=== PATIENT | female | born 1940 | race Caucasian/White ===

== ENCOUNTER → 2020-01-08 09:26 | Outpatient (BNVA) | payer MEDICARE, SELFPAY | PROVIDERS: Visit Provider Nurse Practitioner Family | DX: R09.89 Other specified symptoms and signs involving the circulatory and respiratory systems (principal); L92.8 Other granulomatous disorders of the skin and subcutaneous tissue; I70.0 Atherosclerosis of aorta | CPT/HCPCS: 71046 ==

== ENCOUNTER 2022-08-03 09:46 | Inpatient (IN) | payer MEDICARE, SELFPAY ==
[2022-08-03] VITALS (68 sets, daily range): BP systolic 99–152; BP diastolic 65–113; PULSE 63–152; RESP 12–28; TEMP 36.2–37; O2SAT 88–100; BMI 28.3
--- NOTE | 2022-08-03 10:00 | ECG_ITS ---
[facility] Test Date: 2022-08-03 Pat Name: Abigail Nick Department: Room: Gender: Female Claims Adjustor: : 1940 Requested By: Maico Marion Order Number: [id number] Nurys MD: Hermila Dudley M.D. Measurements Intervals [place] Rate: 106 P: NC: QRS: -17 QRSD: 84 T: 31 QT: 315 QTc: 419 Interpretive Statements ATRIAL FIBRILLATION WITH RAPID VENTRICULAR RESPONSE VOLTAGE CRITERIA FOR LVH Compared to ECG 08/03/2022 09:57:07 ST (T wave) deviation no longer present Electronically Signed On 08-03-2022 18:03:28 CDT by Hermila Dudley M.D. [id number]
--- NOTE | 2022-08-03 10:01 | XRR_ITS ---
PROCEDURE INFORMATION: Exam: XR Chest Exam date and time: 08/03/2022 10:38 AM Age: 82 years old Clinical indication: Dyspnea TECHNIQUE: Imaging protocol: Radiologic exam of the chest. Views: 1 view. COMPARISON: CR XR chest 2V* [id number] 01/08/2020 9:34 AM FINDINGS: Lungs: The lung parenchyma is clear. Pleural spaces: No pneumothorax. No pleural effusion. Heart/Mediastinum: The cardiomediastinal silhouette is within normal limits. Bones/joints: Unremarkable. XR/XR chest 1V portable [id number] IMPRESSION: No acute cardiopulmonary abnormality.
[2022-08-03 10:10] LABS: Basophils % 0.2 %; Eosinophils # 0.1 10^3/uL (0.0-0.8); Eosinophils % 1.3 %; Lymphocytes # 1.7 10^3/uL (0.8-4.8); Mean Corpuscular HGB Conc 33.3 g/dL (30.0-36.0); Mean Corpuscular Hemoglobin 32.6 pg (28.0-34.0); Mean Corpuscular Volume 97.8 fl (81-99); Mean Platelet Volume 10.7 fL (7.4-10.4); Monocytes % 9.6 %; Neutrophils % 71.3 %; Nucleated Red Blood Cells % 0 %; Platelet Count 292 10^3/cmm (130-400); Red Cell Distribution Width 12.7 % (12.1-15.1); White Blood Count 10.1 10^3/uL (4.0-10.0)
[2022-08-03] MEDS: esmolol drip 2,500 MG/250 ML PREMIX 9.53 MG IV (10:13)
[2022-08-03 10:47] LABS: Troponin(5th) Baseline 21 ng/L (0-10)
[2022-08-03 10:50] LABS: Alanine Aminotransferase 30 U/L (0-33); Albumin Level 3.8 g/dL (3.5-5.2); Alkaline Phosphatase 104 U/L (35-105); Blood Urea Nitrogen 19 mg/dL (8-23); Calcium 9.3 mg/dL (8.5-10.5); Carbon Dioxide 27 mmol/L (22-29); Chloride 101 mmol/L (98-107); Glucose 108 mg/dL (65-115); NT Pro B Type Natriuretic Pept 704 pg/mL (0-450); Osmolality Calculated 293 mOsm/kg (285-295); Sodium 140 mmol/L (136-145); Thyroid Stimulating Hormone 1.64 uIU/mL (0.27-4.20); Total Bilirubin 0.6 mg/dL (0.15-1.2); Total Protein 6.8 g/dL (6.6-8.7)
[2022-08-03 10:52] LABS: Anion Gap 16.2 (5-19); Aspartate Amino Transferase 27 U/L (0-32); Potassium 4.2 mmol/L (3.5-5.1)
--- NOTE | 2022-08-03 10:52 | W.ED.ARRPALP ---
HPI - Arrhythmia/Palpitations General: Chief Complaint: ER Hold Stated Complaint: new onset afib Source: patient Mode of arrival: ambulatory Limitations: no limitations History of Present Illness: 82-year-old female presents the emergency room with irregular rapid heart rate. She not had any chest pain it has caused her to be extremely weak and short of breath generally not feeling well has been going on intermittently for the last 3 weeks. She has not had any orthopnea no swelling in her legs no known history of atrial fibrillation coronary disease in the past MD complaint: rapid heart beat, heart racing and skipped beats Onset (ago): week(s) (2) Duration: intermittent Severity: moderate Context: occurred during rest Arrhythmia history: atrial fibrillation Associated symptoms: Deny anxiety, cough, diaphoresis, muscle cramps, nausea, paresthesias, pre-syncope, sense of impending doom, short of breath, syncope or vomiting Review of Systems Const: Denies: diaphoresis Card: Denies: syncope or pre-syncope GI: Denies: nausea or vomiting : Denies: flank pain, difficulty voiding, dysuria, urinary frequency or urinary urgency Musc: Denies: muscle cramps Psych: Denies: anxiety PFSH ED PFSH: Medical History CVA (cerebral vascular accident) GERD (gastroesophageal reflux disease) Hyperlipidemia Hypertension Surgical History Hx of hysterectomy Family History Other Psychiatric illness Social History Smoking and tobacco status: never smoked Second hand smoke exposure: No Alcohol intake: never Lives independently: Yes Household members: none Housing: House Marital status: / Current occupational status: retired History of recent travel: No Current gender identity: Female Physical Exam Const: COMMON NORMALS: no acute distress GENERAL APPEARANCE: cooperative and comfortable ORIENTATION/CONSCIOUSNESS: Yes awake, Yes oriented to person, Yes oriented to place and Yes oriented to time HENMT: COMMON NORMALS: normocephalic, atraumatic and hearing grossly normal bilaterally HEAD & SCALP: normocephalic and atraumatic Resp: COMMON NORMALS: normal respiratory effort, No retractions, No use of accessory muscles and clear to auscultation bilaterally AUSCULTATION: clear to auscultation bilaterally Cardio: RATE: tachycardic RHYTHM: abnormal rhythm irregularly irregular GI: COMMON NORMALS: Soft to palpation and No hepatosplenomegaly present AUSCULTATION: Yes normoactive bowel sounds PALPATION: Yes Soft to palpation, No Tenderness to palpation present (GI), No Guarding due to palpation present (GI) and Yes No hepatosplenomegaly present Extremity: COMMON NORMALS: normal to inspection, capillary refill normal, no clubbing, cyanosis or edema, no calf tenderness and no pedal edema Neuro: SENSORIUM/ORIENTATION: Yes oriented to person, Yes oriented to place and Yes oriented to time Skin: COMMON NORMALS: no rashes or lesions noted GENERAL SKIN EXAM: no rashes or lesions noted Course Vital Signs: Vital signs: Vital Signs Temperature 98.2 F 08/03/22 09:55 Pulse Rate 122 H 08/03/22 13:15 Respiratory Rate 15 08/03/22 15:22 Blood Pressure 139/103 08/03/22 13:15 Pulse Oximetry 99 08/03/22 15:22 Oxygen Delivery Me thod 08/03/22 10:42 MDM - Arrhythmia/Palpitations Medical Decision Making new onset afib. Admit for rate control and further evaluation. Medical Records I reviewed the patient's medical records. Lab Data I reviewed the patient's lab results. : 08/03/22 10:00 08/03/22 10:00 Radiology Impressions Chest X-Ray 08/03/22 10:01 IMPRESSION: No acute cardiopulmonary abnormality. Abdomen X-Ray 08/03/22 12:11 IMPRESSION: Unremarkable bowel gas pattern. Laboratory Results WBC 10.1 10^3/uL (4.0-10.0) H 08/03/22 10:00 RBC 4.60 10^6/uL (4.1-5.3) 08/03/22 10:00 Hgb 15.0 g/dL (11.5-15.3) 08/03/22 10:00 Hct 45.0 % (37.0-47.0) 08/03/22 10:00 MCV 97.8 fl (81-99) 08/03/22 10:00 MCH 32.6 pg (28.0-34.0) 08/03/22 10:00 MCHC 33.3 g/dL (30.0-36.0) 08/03/22 10:00 RDW 12.7 % (12.1-15.1) 08/03/22 10:00 Plt Count 292 10^3/cmm (130-400) 08/03/22 10:00 MPV 10.7 fL (7.4-10.4) H 08/03/22 10:00 Neut % (Auto) 71.3 % 08/03/22 10:00 Lymph % (Auto) 17.0 % 08/03/22 10:00 [place] % (Auto) 9.6 % 08/03/22 10:00 Eos % (Auto) 1.3 % 08/03/22 10:00 Baso % (Auto) 0.2 % 08/03/22 10:00 Neut # (Auto) 7.20 10^3/uL (1.8-7.7) 08/03/22 10:00 Lymph # (Auto) 1.7 10^3/uL (0.8-4.8) 08/03/22 10:00 [place] # (Auto) 1.0 10^3/uL (0.2-0.9) H 08/03/22 10:00 Eos # (Auto) 0.1 10^3/uL (0.0-0.8) 08/03/22 10:00 Baso # (Auto) 0.0 10^3/uL (0.0-0.1) 08/03/22 10:00 Nucleated RBC % (auto) 0 % 08/03/22 10:00 Nucleated RBCs # 0.0 /100WBC 08/03/22 10:00 Sodium 140 mmol/L (136-145) 08/03/22 10:00 Potassium 4.2 mmol/L (3.5-5.1) 08/03/22 10:00 Chloride 101 mmol/L (98-107) 08/03/22 10:00 Carbon Dioxide 27 mmol/L (22-29) 08/03/22 10:00 Anion Gap 16.2 (5-19) 08/03/22 10:00 BUN 19 mg/dL (8-23) 08/03/22 10:00 Creatinine 0.8 mg/dL (0.5-0.9) 08/03/22 10:00 GFR Calculation Not Reportable 08/03/22 10:00 Glucose 108 mg/dL (65-115) 08/03/22 10:00 Calculated Osmolality 293 mOsm/kg (285-295) 08/03/22 10:00 Lactate 1.4 mmol/L (0.5-2.2) 08/03/22 10:00 Calcium 9.3 mg/dL (8.5-10.5) 08/03/22 10:00 Magnesium 2.0 mg/dL (1.7-2.3) 08/03/22 10:00 Total Bilirubin 0.6 mg/dL (0.15-1.2) 08/03/22 10:00 AST 27 U/L (0-32) 08/03/22 10:00 ALT 30 U/L (0-33) 08/03/22 10:00 Alkaline Phosphatase 104 U/L (35-105) 08/03/22 10:00 Troponin T Baseline 21 ng/L (0-10) H 08/03/22 10:00 Troponin T 120 Minute 28.04 ng/L (0-10) H 08/03/22 11:56 Delta Troponin T 7.04 ABS# (0-10) 08/03/22 11:56 NT-Pro-B Natriuret Pep 704 pg/mL (0-450) H 08/03/22 10:00 Total Protein 6.8 g/dL (6.6-8.7) 08/03/22 10:00 Albumin 3.8 g/dL (3.5-5.2) 08/03/22 10:00 Globulin 3.0 g/dL (1.3-4.6) 08/03/22 10:00 Lipase 72 U/L (13-60) H 08/03/22 10:00 TSH 1.64 uIU/mL (0.27-4.20) 08/03/22 10:00 Discharge Plan Discharge Patient Disposition: Admitted As Inpatient Admit Provider: Andrea Campbell Clinical Impression: Atrial fibrillation, Hypertension Condition: Stable Coding Level of Care Code ED Personal Injury Paralegal for Chg Fwd Exam Detailed
--- NOTE | 2022-08-03 11:22 | PC.PHAR ---
pts family verified pts medications-states the pts amlodipine 2.5mg daily and losartan 50mg bid was put on hold states the pt did take one tab of the losartan on tuesday and one tab of the amlodipine 2.5mg tab on tue-states the pt should be on the last role of the medrol dose pack today rx filled 07/28/22 6d/s-kcl 20meq daily was filled 07/03/22 30d/s pts family states the pt is not taking kcl -notes are made in the pharmacy comments
--- NOTE | 2022-08-03 11:48 | USCV_ITS ---
Abigail Nick Age: 82 Gender: F : 1940 Exam Date: 08/03/2022 16:17 Ordering Phys: Andrea Campbell MD Technologist: KATELYN Exam Location: [facility] [place] Indication: AFIB WITH RVR BP: 141 / 80 HR: 75 Rhythm: Sinus Technical Quality: Adequate MEASUREMENTS (Male / Female) Normal Values 2D ECHO LVOT Diameter 2.0 cm LV Ejection Fraction MOD 2C 69.6 % LV Ejection Fraction 2C AL 72.2 % LA Diameter 3.3 cm LA Width 2.8 cm LA Height 4.6 cm RA Width 2.4 cm RA Height 4.7 cm Aorta at Sinotubular Diameter 2.5 cm M-MODE Aortic Annulus Diameter 2.6 cm LA Ao Ratio MM 1.2 MV E Point Septal Separation 0.2 cm DOPPLER AV Peak Velocity 121.0 cm/s LVOT Peak Velocity 110.0 cm/s AV Area Cont Eq vti 3.6 cm squared AV Area Cont Eq pk 2.8 cm squared MV Peak Velocity 79.0 cm/s MV Area PHT 3.1 cm squared Mitral E to A Ratio 0.9 MV E' Velocity 39.0 cm/s Mitral E to MV E' Ratio 8.1 Mitral E to LV E' Lateral Ratio 7.5 Mitral E to LV E' Septal Ratio 8.8 TR Peak Velocity 197.1 cm/s TR Peak Gradient 15.5 mmHg TR Mean Velocity 144.3 cm/s TR Mean Gradient 9.6 mmHg TR Velocity Time Integral 49.9 cm TV Peak E Velocity 34.0 cm/s Right Atrial Pressure 8.0 mmHg Pulmonary Artery Systolic Pressu 23.5 mmHg PV Peak Velocity 87.0 cm/s RV Acceleration Time 0.1 s RV Ejection Time 0.3 s RV AcT/ET 0.3 FINDINGS Left Ventricle Left ventricle is normal in size. LV systolic function is normal with EF 55 to 60%. No regional wall motion abnormalities are seen. Grade 1 diastolic dysfunction Right Ventricle RV is normal in size and function Right Atrium Normal in size Left Atrium Normal in size Mitral Valve Moderate mitral annular calcification is seen. Mild mitral regurgitation seen. Aortic Valve Aortic valve is thickened. No significant stenosis or regurgitation is seen. Tricuspid Valve Mild tricuspid regurgitation. Insufficient TR jet to elevated RVSP. Pulmonic Valve Not well-visualized. Mild pulmonic regurgitation. Pericardium Normal Aorta Normal in size IVC Not well-visualized CONCLUSIONS LV systolic function is normal with EF 55 to 60%. Grade 1 diastolic dysfunction Mild mitral regurgitation Moderate mitral annular calcification Mild tricuspid regurgitation Mild pulmonic regurgitation. No comparison studies are available Margarito Dsouza MD (Electronically Signed) Final Date: 03 August 2022 18:15 S
--- NOTE | 2022-08-03 12:11 | XRR_ITS ---
PROCEDURE INFORMATION: Exam: XR Abdomen Exam date and time: 08/03/2022 12:40 PM Age: 82 years old Clinical indication: Abdominal pain; Generalized TECHNIQUE: Imaging protocol: Radiologic exam of the abdomen. Views: Frontal supine view of the abdomen. 1 View. COMPARISON: CR XR chest 1V portable [id number] 08/03/2022 10:38 AM FINDINGS: Gastrointestinal tract: Normal. No bowel dilation. Vasculature: Vascular calcifications. Bones/joints: Arthritic changes in the spine with questionable compression fractures of T12 and L2. XR/XR abdomen 1V* [id number] IMPRESSION: Unremarkable bowel gas pattern.
--- NOTE | 2022-08-03 12:15 | PM.HP ---
Providers/Chief Complaint Admitting Physician: Andrea Campbell MD Chief Complaint: new onset afib History of Present Illness Abigail Nick is a 82 year old female with past history of CVA affecting her right side, hypertension, hyperlipidemia who presents to the hospital with complaints of nausea vomiting and loose stool. Nausea has been going on for several days. Occasional loose stool. Was hospitalized with similar symptoms 1 month ago in [facility]. Treated with Zofran, IV fluids and eventually released. Was told she was constipated at one point. Also she had palpitations at that time which she reports she has intermittently. They reported she had intermittent atrial fibrillation diagnosed by telemetry at her previous hospital stay. She denies any chest discomfort or shortness of breath. No fever or chills. States her abdomen hurts all over, but does not hurt with any palpation. Stool, black or tarry stool, hematemesis. Her last hospital stay she has been very weak, and physical therapy had been ordered at home. She has been making some small gains. Review of Systems General: Reports: 10 or more systems reviewed and unremarkable except in HPI and below Const: Reports: fatigue; Denies: fever(s) or chills Eyes: Denies: change in vision ENMT: Denies: throat pain Card: Reports: palpitations; Denies: chest pain Resp: Denies: dyspnea GI: Reports: abdominal pain and nausea; Denies: hematemesis, hematochezia or melena : Denies: flank pain Musc: Denies: neck pain Skin/Breast: Denies: rash Neuro: Denies: headache(s) Psych: Denies: anxiety Endo: Denies: polyuria Ameya/Lymph: Denies: easy bruising All/Imm: Denies: urticaria Medications/Allergies Home Medications Medication Instructions Recorded Confirmed Last Taken Type omeprazole 20 mg tablet,delayed 20 mg PO QAM 01/08/20 08/03/22 08/02/22 History release vitamin E (dl, acetate) 90 mg (200 200 unit PO DAILY@12 01/08/20 08/03/22 08/02/22 History unit) capsule amlodipine 2.5 mg tablet 2.5 mg PO DAILY 08/03/22 08/03/22 07/31/22 History atorvastatin 20 mg tablet 20 mg PO BEDTIME 08/03/22 08/03/22 08/02/22 History clopidogrel 75 mg tablet 75 mg PO QAM 08/03/22 08/03/22 08/02/22 History coenzyme Q10 100 mg capsule 100 mg PO BEDTIME 08/03/22 08/03/22 08/02/22 History (CoQ-10) losartan 50 mg tablet 50 mg PO BID 08/03/22 08/03/22 08/01/22 History methylprednisolone 4 mg tablets in See Rx Instructions .Route .COMPLEX 08/03/22 08/03/22 08/02/22 History a dose pack metoprolol succinate 25 mg 25 mg PO BID 08/03/22 08/03/22 08/02/22 History tablet,extended release 24 hr tizanidine 4 mg tablet 2 mg PO QID PRN Muscle Spasm 08/03/22 08/03/22 Unknown History tramadol 50 mg tablet 50 mg PO QID PRN Pain 08/03/22 08/03/22 Unknown History Allergies Allergy/AdvReac Type Severity Reaction Status Date / Time Sulfa (Sulfonamide Allergy ALGY-Rash Verified 08/03/22 10:57 Antibiotics) PFSH Acute PFSH: Medical History CVA (cerebral vascular accident) GERD (gastroesophageal reflux disease) Hyperlipidemia Hypertension Surgical History (Updated 08/03/22 @ 12:19 by Andrea Campbell MD) Hx of hysterectomy Family History Other Psychiatric illness Social History Smoking and tobacco status: never smoked Second hand smoke exposure: No Alcohol intake: never Lives independently: Yes Household members: none Housing: House Marital status: / Current occupational status: retired History of recent travel: No Current gender identity: Female Vitals/I&O/Wt Last Vital Signs Temp 98.2 F 08/03/22 09:55 Pulse 113 H 08/03/22 11:15 Resp 15 08/03/22 11:15 BP 140/105 08/03/22 11:15 Pulse Ox 97 08/03/22 11:15 O2 Del Method 08/03/22 10:42 08/02/22 08/03/22 08/03/22 22:59 06:59 14:59 Intake Total 38.259 / 38.259 Balance 38.259 / 38.259 Weight last 48 hrs Weight 63.503 kg Physical Exam Narrative: Is a white female, no distress, with family at bedside. She is alert, and oriented but somewhat hard of hearing. HEENT: Atraumatic and normocephalic. Pupils equally round. Oropharynx clear. Neck is supple no lymphadenopathy thyromegaly Cardiovascular irregular, irregular with tachycardic rate. No murmur auscultated. Lungs clear no wheezing or crackles Abdomen is soft. No tenderness to palpation. Bowel sounds are noted. No obvious organomegaly exam was deferred Extremities no cyanosis clubbing or edema, cap refill brisk Skin no rash Neuro no obvious focal deficits although family reports occasionally right side is weaker when she is fatigued secondary to past history of TIA/CVA Data : 08/03/22 10:00 08/03/22 10:00 Other Labs: EKG demonstrates atrial fibrillation with rapid ventricular rate, border left axis deviation, nonspecific ST-T wave changes Chest x-ray no infiltrate, atherosclerotic disease noted. TSH was checked and normal Function tests normal Initial troponin 21 BNP 704 Calcium normal Lactate ordered and pending Magnesium normal LFTs normal A&P Assessment and plan (1) Atrial fibrillation: Patient presents with atrial fibrillation with rapid ventricular rate. It sounds as if she may have been diagnosed with paroxysmal atrial fibrillation 1 month ago. Request records from outside hospital TSH was checked and normal Await magnesium level She has been placed on an esmolol drip which is appropriate. We will give her 25 mg of metoprolol now and increase her home dosing to 50 mg twice daily to see if control can be achieved. If so titrate off esmolol drip. Check echocardiogram Status: Acute (2) Abdominal pain: Patient with history of abdominal pain, nausea, and some loose stools. Request records from [place] where she had a CT scan 1 month ago or more recently Initiate Protonix 40 mg twice daily Clear liquids for now Check stool for C. difficile Abdominal film, check lactate, check lipase May need further investigation depending upon the results of the above. Check urinalysis Secondary to nausea, diarrhea we will also check COVID PCR. Status: Acute (3) Weakness: Patient with significant weakness since her last hospital stay in [place]. Continue physical therapy in house Status: Acute (4) Hypertension: Hold patient's Norvasc, losartan currently until we see how she responds to increases in her beta-beth. Certainly will likely need ARB urea added. Status: Acute Plan Medical problems as outlined in past medical history Allow natural Lovenox will suffice for DVT prophylaxis Attestations Medical Necessity Statement*: Will require greater than 2 midnight stay secondary to atrial fibrillation with rapid ventricular rate, significant nausea and vomiting, weakness Coding Level of Care Code Acute Paster Supervisor for [facility] Ovidio Diagnoses Atrial fibrillation I48.91 Abdominal pain R10.9 Weakness R53.1 Hypertension I10
--- NOTE | 2022-08-03 12:17 | ECG_ITS ---
[facility] Test Date: 2022-08-03 Pat Name: Abigail Nick Department: Room: Gender: Female [place] Operator: : 1940 Requested By: Maico Marion Order Number: [id number] Nurys MD: Hermila Dudley M.D. Measurements Intervals [place] Rate: 129 P: TN: QRS: -18 QRSD: 83 T: 27 QT: 293 QTc: 430 Interpretive Statements Atrial fibrillation with rapid ventricular response MODERATE VOLTAGE CRITERIA FOR LVH, CONSIDER NORMAL VARIANT MODERATE ST DEPRESSION [0.05+ mV ST DEPRESSION] Compared to ECG 08/03/2022 09:57:07 ST (T wave) deviation still present Electronically Signed On 08-04-2022 9:56:48 CDT by Hermila Dudley M.D. [email or web address] [email or web address].Flowity/store/[id number]
[2022-08-03 12:29] LABS: Troponin 5 2HR 28.04 ng/L (0-10); Troponin 5 2HR Delta 7.04 ABS# (0-10)
[2022-08-03 12:31] LABS: Lactate (Lactic Acid level) 1.4 mmol/L (0.5-2.2)
[2022-08-03 12:57] LABS: Lipase 72 U/L (13-60)
[2022-08-03] MEDS: metoprolol tartrate 25 mg Tablet PO (13:12)
[2022-08-03] MEDS: enoxaparin 60 mg/0.6 mL Syringe SUBCUT (13:12)
[2022-08-03] MEDS: pantoprazole 40 mg SDV IVP (13:13)
[2022-08-03] MEDS: sodium chloride 0.9% 1,000 ML 75 ML IV (13:21)
[2022-08-03] MEDS: morphine 4 mg/mL SDV 1 mL 2 MG IVP (15:22)
[2022-08-03] MEDS: esmolol drip 2,500 MG/250 ML PREMIX 38.1 MG IV (15:34)
--- NOTE | 2022-08-03 16:00 | ECG_ITS ---
[facility] Test Date: 2022-08-03 Pat Name: Abigail Nick Department: Room: Gender: Female Application Counselor: : 1940 Requested By: Maico Marion Order Number: [id number] Nurys MD: Hermila Dudley M.D. Measurements Intervals [place] Rate: 155 P: MD: QRS: -6 QRSD: 90 T: 45 QT: 273 QTc: 438 Interpretive Statements ATRIAL FIBRILLATION WITH RAPID VENTRICULAR RESPONSE MODERATE VOLTAGE CRITERIA FOR LVH, CONSIDER NORMAL VARIANT MODERATE ST DEPRESSION No previous ECG available for comparison Electronically Signed On 08-04-2022 9:57:17 CDT by Hermila Dudley M.D. [email or web address] memorial [email or web address] regional medical centerCibiem/store/OM/[id number]
[2022-08-03 17:24] LABS: Troponin 5 6HR 27.81 ng/L (0-10); Troponin 5 6HR Delta 6.81 ng/L (0-12)
--- NOTE | 2022-08-03 17:57 | PC.NURSE ---
Report to [facility], ICU, patient moving out to ICU 6. Call placed to Dr. Campbell re: esmolol, patient's heart rate sustaining in the 70's, has started po meds, yes okay to titrate off, esmolol turned off at this time.
[2022-08-03] MEDS: metoprolol tartrate 50 mg Tablet PO (18:01)
--- NOTE | 2022-08-03 18:28 | PC.NURSE ---
Arrived from ED, AO x4, no c/o
[2022-08-03] MEDS: atorvastatin 40 mg Tablet 20 MG PO (20:24)
[2022-08-04] VITALS (55 sets, daily range): BP systolic 147–200; BP diastolic 60–107; PULSE 64–112; RESP 12–33; TEMP 36.6–36.8; O2SAT 81–100
[2022-08-04] MEDS: enoxaparin 60 mg/0.6 mL Syringe SUBCUT ×3 (00:05→23:45)
[2022-08-04] MEDS: pantoprazole 40 mg SDV IVP ×3 (00:06→23:45)
[2022-08-04 00:37] LABS: Adenovirus Not Detected (NOT DETECT); Chlamydia Pneumoniae Not Detected (NOT DETECT); Coronavirus 229E,HKU1,NL63,OC4 Not Detected (NOT DETECT); Human Metapneumovirus Not Detected (NOT DETECT); Human Rhinovirus/Enterovirus Not Detected (NOT DETECT); Influenza A Not Detected (NOT DETECT); Influenza A H1 Not Detected (NOT DETECT); Influenza A H1-2009 Not Detected (NOT DETECT); Influenza A H3 Not Detected (NOT DETECT); Influenza B Not Detected (NOT DETECT); Mycoplasma Pneumoniae Not Detected (NOT DETECT); Parainfluenza Virus Type 1 Not Detected (NOT DETECT); Parainfluenza Virus Type 2 Not Detected (NOT DETECT); Parainfluenza Virus Type 3 Not Detected (NOT DETECT); Parainfluenza Virus Type 4 Not Detected (NOT DETECT); Respiratory Syncytial Virus A Not Detected (NOT DETECT); Respiratory Syncytial Virus B Not Detected (NOT DETECT); SARS-COV-2 Not Detected (NOT DETECT)
[2022-08-04 04:33] LABS: Add Urine Culture? No; Amorphous Sediment Urine 1+ /hpf; Bilirubin Urine Neg (Negative); Blood Urine Trace (Negative); Glucose Urine UA Norm (Normal); Ketones Urine Negative (Negative); Leukocyte Esterase Urine Negative (Negative); Nitrate Urine Negative (Negative); Protein Urine Neg (Negative); RBC Urine 0-4 /hpf (0-2); Squamous Epithelial Cell Urine 0-4 /hpf (0-5); Urine Appearance Clear (CLEAR); Urine Color Yellow (Yellow); Urobilinogen Urine Norm (Negative); WBC Urine 0-4 /hpf (0-5); pH Urine 6.5 (5-7)
[2022-08-04 04:53] LABS: Basophils % 0.2 %; Eosinophils # 0.1 10^3/uL (0.0-0.8); Eosinophils % 2.1 %; Hematocrit 35.1 % (37.0-47.0); Hemoglobin 11.5 g/dL (11.5-15.3); Lymphocytes # 1.3 10^3/uL (0.8-4.8); Lymphocytes % 20.6 %; Mean Corpuscular HGB Conc 32.8 g/dL (30.0-36.0); Mean Corpuscular Hemoglobin 32.6 pg (28.0-34.0); Mean Corpuscular Volume 99.4 fl (81-99); Mean Platelet Volume 10.8 fL (7.4-10.4); Monocytes # 0.5 10^3/uL (0.2-0.9); Monocytes % 7.9 %; Neutrophils # 4.27 10^3/uL (1.8-7.7); Neutrophils % 68.7 %; Nucleated Red Blood Cells % 0 %; Platelet Count 222 10^3/cmm (130-400); Red Blood Count 3.53 10^6/uL (4.1-5.3); Red Cell Distribution Width 12.8 % (12.1-15.1); White Blood Count 6.2 10^3/uL (4.0-10.0)
[2022-08-04] MEDS: clopidogrel 75 mg Tablet PO (05:02)
[2022-08-04] MEDS: sodium chloride 0.9% 1,000 ML 75 ML IV ×2 (05:03→14:28)
[2022-08-04 05:18] LABS: Alanine Aminotransferase 19 U/L (0-33); Albumin Level 2.9 g/dL (3.5-5.2); Alkaline Phosphatase 77 U/L (35-105); Anion Gap 13.3 (5-19); Aspartate Amino Transferase 16 U/L (0-32); Blood Urea Nitrogen 14 mg/dL (8-23); Calcium 8.2 mg/dL (8.5-10.5); Carbon Dioxide 24 mmol/L (22-29); Chloride 105 mmol/L (98-107); Globulin 2.1 g/dL (1.3-4.6); Glucose 95 mg/dL (65-115); Osmolality Calculated 288 mOsm/kg (285-295); Potassium 3.3 mmol/L (3.5-5.1); Sodium 139 mmol/L (136-145); Total Bilirubin 0.6 mg/dL (0.15-1.2)
[2022-08-04] MEDS: ondansetron 2 mg/ML SDV 2 mL 4 MG IVP (05:29)
[2022-08-04] MEDS: metoprolol tartrate 50 mg Tablet PO ×2 (08:19→17:06)
[2022-08-04 09:36] LABS: Lipase 41 U/L (13-60)
--- NOTE | 2022-08-04 09:40 | P.PN_ITS ---
Subjective Subjective: Abigail reports she is nauseated, needs to have a bowel movement. Nursing reports that she converted to sinus rhythm at last night. Patient denies any chest discomfort. She reports her abdominal pain is all over, not [address] She believes it might be alleviated after a bowel movement. Medications: Reviewed: Yes Vitals/I&O/Wt Last Vital Signs Temp 98.6 F 08/03/22 23:44 Pulse 112 H 08/04/22 09:15 Resp 14 08/04/22 04:00 BP 154/60 08/04/22 04:00 Pulse Ox 96 08/04/22 09:15 O2 Del Method 08/04/22 09:15 08/03/22 08/04/22 08/04/22 22:59 06:59 14:59 Intake Total 452.593 / 371.514 3978 / 1690.852 Output Total 810 / 810 Balance 452.593 / 490.852 390 / 880.852 Weight last 48 hrs Weight 63.503 kg Physical Exam Narrative: General exam is white female complaining of abdominal pain and needing to have a bowel movement Neck is supple no lymphadenopathy thyromegaly Cardiovascular irregular, irregular with tachycardic rate. No murmur auscultated. Lungs clear no wheezing or crackles Abdomen is soft. Bowel sounds are noted. No obvious organomegaly exam was deferred Extremities no cyanosis clubbing or edema, cap refill brisk Skin no rash Data : 08/04/22 04:13 08/04/22 04:13 A&P Assessment and plan (1) Atrial fibrillation: Patient presents with atrial fibrillation with rapid ventricular rate. She has now converted to sinus rhythm It sounds as if she may have been diagnosed with paroxysmal atrial fibrillation 1 month ago. TSH was checked and normal Magnesium level was normal She has been placed on an esmolol drip which is appropriate. This has since been discontinued and she is cardioverted. Continue increased dose of metoprolol 50 mg twice daily Echocardiogram has been checked. EF preserved at 55 to 60%, grade 1 diastolic dysfunction, mild valvular abnormalities Continue full dose anticoagulation. We will convert to oral anticoagulation when it is apparent no surgical procedures are needed. I have already discussed the risks and benefits of anticoagulation with the patient and family. Status: Acute (2) Abdominal pain: Patient with history of abdominal pain, nausea, and some loose stools. Request records from [place] where she had a CT scan 1 month ago were reviewed. [address] scan not very revealing at that time . Continue Protonix 40 mg twice daily Clear liquids for now Await C. difficile toxin if she in fact has loose stool. Abdominal film and lactate were unrevealing. Lipase slightly high on admission. Repeat is normal. Urinalysis negative COVID PCR negative I revisited the patient shortly after the visit, and she had had a soft bowel movement and resolution of her discomfort and nausea. We will advance diet. If significant recurrent symptoms, consider CT scan. As she is recently had one 1 month ago will try to avoid. Status: Acute (3) Weakness: Patient with significant weakness since her last hospital stay in [place]. Continue physical therapy in hospital Status: Acute (4) Hypertension: Reinitiate losartan Status: Acute Plan Hypokalemia, supplement Medical problems as outlined in past medical history Allow natural Lovenox will suffice for DVT prophylaxis Attestations Medical Necessity Statement*: Needs continued hospitalization secondary to persistent nausea and abdominal pain with concern for recurrent vomiting, dehydration, and rehospitalization Coding Level of Care Code Acute Personal Lines Advisor for Chg Fwd Diagnoses Atrial fibrillation I48.91 Abdominal pain R10.9 Weakness R53.1 Hypertension I10
--- NOTE | 2022-08-04 10:30 | PC.CHAP ---
Pastoral Care Encounter/Spiritual Assessment Type of Contact [] Declined hat band attacher visit [] Patient/Family/Request visit [] Outpatient visit [] Follow-up visit [] Physician referral [] Code/Alert [x] Routine visit [] Staff referral [] Actively dying [] Patient sleeping [x] Family support [] [] Out of room [] Palliative care [] [] Receiving care in room [] Pre-surgical visit [] Trauma [] Long length of stay [x] ICU visit [x] Other: doctor present Relational/Emotional Strength [] Patient feels connected with others/family/visitors/staff [] Distress [] Loneliness/isolation [] Abandonment Spirituality of Patient [] Person of Brianna [] Attends Uatsdin of their Brianna [] Believes in Prayer [] Reads Bible or Hindu materials [] There are Spiritual issues to be addressed Selector Packer Interventions [x] Prayer [] Active listening [] Non-anxious presence [] Spiritual/emotional support [] Crisis/trauma care [] Spiritual counseling [] Bereavement support [] Provided bereavement packet [] Provided Bible/devotional materials [] Provided toy/stuffed animal, coloring book to patient or family member [] Provided Communion [] Anointing/[place] [] Salvation [x] Completed spiritual assessment [] Other: Impact on Illness or Injury [] Angry [] Fearful [] Anxious [] Often cries [] Exhaustion [] Unable to work [] Unable to attend temple [] Unable to walk/stand [] Unable to read [] Unable to drive [] Unable to eat/drink [] Unable to sleep [] Unable to be with family [] Patient intubated [] Other: Summary PT feeling stronger... being served solid food to test ability to digest it... Time spent with patient
[2022-08-04] MEDS: polyethylene glycol 3350 Pkt 17 gm PO (11:00)
[2022-08-04] MEDS: potassium chloride ER 20 mEq Tablet 40 MEQ PO (11:00)
[2022-08-04] MEDS: cyclobenzaprine 10 mg Tablet 5 MG PO (12:42)
[2022-08-04] MEDS: losartan 50 mg Tablet PO (17:04)
[2022-08-04] MEDS: atorvastatin 40 mg Tablet 20 MG PO (20:03)
[2022-08-05] VITALS (10 sets, daily range): BP systolic 120–181; BP diastolic 65–115; PULSE 65–80; RESP 13–29; TEMP 37; O2SAT 94–99
[2022-08-05 03:52] LABS: Basophils % 0.3 %; Eosinophils # 0.2 10^3/uL (0.0-0.8); Eosinophils % 2.5 %; Hemoglobin 10.9 g/dL (11.5-15.3); Lymphocytes # 1.3 10^3/uL (0.8-4.8); Lymphocytes % 20.8 %; Mean Corpuscular HGB Conc 32.1 g/dL (30.0-36.0); Mean Corpuscular Hemoglobin 32.7 pg (28.0-34.0); Mean Corpuscular Volume 102.1 fl (81-99); Mean Platelet Volume 11.2 fL (7.4-10.4); Monocytes # 0.6 10^3/uL (0.2-0.9); Monocytes % 10.4 %; Neutrophils # 3.97 10^3/uL (1.8-7.7); Neutrophils % 65.5 %; Nucleated Red Blood Cells % 0 %; Platelet Count 214 10^3/cmm (130-400); Red Blood Count 3.33 10^6/uL (4.1-5.3); Red Cell Distribution Width 12.8 % (12.1-15.1); White Blood Count 6.1 10^3/uL (4.0-10.0)
[2022-08-05 04:20] LABS: Alanine Aminotransferase 20 U/L (0-33); Alkaline Phosphatase 73 U/L (35-105); Aspartate Amino Transferase 19 U/L (0-32); Blood Urea Nitrogen 10 mg/dL (8-23); Carbon Dioxide 24 mmol/L (22-29); Chloride 107 mmol/L (98-107); Globulin 1.9 g/dL (1.3-4.6); Glucose 105 mg/dL (65-115); Osmolality Calculated 289 mOsm/kg (285-295); Sodium 140 mmol/L (136-145); Total Bilirubin 0.5 mg/dL (0.15-1.2); Total Protein 4.9 g/dL (6.6-8.7)
[2022-08-05 04:24] LABS: Anion Gap 12.7 (5-19); Potassium 3.7 mmol/L (3.5-5.1)
[2022-08-05] MEDS: clopidogrel 75 mg Tablet PO (05:04)
[2022-08-05] MEDS: sodium chloride 0.9% 1,000 ML 75 ML IV (07:29)
[2022-08-05] MEDS: losartan 50 mg Tablet PO (08:49)
[2022-08-05] MEDS: metoprolol tartrate 50 mg Tablet PO (08:49)
[2022-08-05] MEDS: polyethylene glycol 3350 Pkt 17 gm PO (08:49)
--- NOTE | 2022-08-05 11:07 | PM.DCS ---
Discharge Providers Date of Admission: 08/03/22 14:07 Date of Discharge: August 05, 2022 Attending Provider at Admission: Andrea Campbell MD Attending Provider at Discharge: Lazaro Blandon Diagnoses at Discharge Discharge Diagnosis (1) Atrial fibrillation: Status: Acute (2) Abdominal pain: Status: Acute (3) Weakness: Status: Acute (4) Hypertension: Status: Acute Reason for Visit Reason for Visit: new onset afib Hospital Course Hospital Course Very pleasant 82-year-old lady with history of CVA, chronic residual right-sided deficit, HTN, HLD, was admitted for assessment of management presenting with nausea, vomiting, loose stool, several days of symptoms, previously admitted with similar symptoms a month ago in [facility] at which time received IV hydration, was assessed also by CT abdomen pelvis. Recently diagnosed with atrial fibrillation, on presentation with Bj wallace with RVR, metoprolol dose was increased to 50 mg twice daily, she was started on anticoagulation. Was continued on pantoprazole 40 mg daily. Plain abdominal film showed unremarkable bowel gas pattern. She had a bowel movement. Nausea and abdominal discomfort have resolved. Today she is feeling much better. Tolerating oral intake. She has been getting around in her room. Her daughter is at bedside and they are comfortable with her returning home. At discharge she is asked to stop aspirin, continue Plavix with being started on Eliquis. She received potassium supplementation for mild hypokalemia which improved. Please reassess potassium level. Physical Exam Const: COMMON NORMALS: patient oriented x3 and alert GENERAL APPEARANCE: cooperative ORIENTATION/CONSCIOUSNESS: Yes awake HENMT: COMMON NORMALS: oropharynx normal Neck/C-Spine: COMMON NORMALS: no JVD Resp: COMMON NORMALS: normal respiratory effort and clear to auscultation bilaterally AUSCULTATION: clear to auscultation bilaterally Cardio: COMMON NORMALS: no JVD, regular rhythm, S1 normal heart sound present, S2 normal heart sound present and No murmurs present (Cardio) RHYTHM: regular rhythm HEART SOUNDS: S1 normal heart sound present and S2 normal heart sound present GI: COMMON NORMALS: Normal to inspection, nondistended, normoactive bowel sounds present, Soft to palpation and non-tender PALPATION: Yes Soft to palpation Extremity: COMMON NORMALS: no joint enlargement and no pedal edema Neuro: COMMON NORMALS: patient oriented x3 and moves all extremities SENSORIUM/ORIENTATION: Yes alert Skin: COMMON NORMALS: no rashes or lesions noted GENERAL SKIN EXAM: no rashes or lesions noted Discharge Data Studies Completed and Pending Completed Studies During Hospitalization Category Date Time Status XR abdomen 1V* [id number] Stat Exams 08/03/22 12:11 Completed XR chest 1V portable [id number] Stat Exams 08/03/22 10:01 Completed CV. echo complete* [id number] Routine Ultrasound 08/03/22 11:48 Completed Radiology Impressions Chest X-Ray 08/03/22 10:01 IMPRESSION: No acute cardiopulmonary abnormality. Abdomen X-Ray 08/03/22 12:11 IMPRESSION: Unremarkable bowel gas pattern. Laboratory Results WBC 6.1 10^3/uL (4.0-10.0) 08/05/22 02:40 RBC 3.33 10^6/uL (4.1-5.3) L 08/05/22 02:40 Hgb 10.9 g/dL (11.5-15.3) L 08/05/22 02:40 Hct 34.0 % (37.0-47.0) L 08/05/22 02:40 MCV 102.1 fl (81-99) H 08/05/22 02:40 MCH 32.7 pg (28.0-34.0) 08/05/22 02:40 MCHC 32.1 g/dL (30.0-36.0) 08/05/22 02:40 RDW 12.8 % (12.1-15.1) 08/05/22 02:40 Plt Count 214 10^3/cmm (130-400) 08/05/22 02:40 MPV 11.2 fL (7.4-10.4) H 08/05/22 02:40 Neut % (Auto) 65.5 % 08/05/22 02:40 Lymph % (Auto) 20.8 % 08/05/22 02:40 [place] % (Auto) 10.4 % 08/05/22 02:40 Eos % (Auto) 2.5 % 08/05/22 02:40 Baso % (Auto) 0.3 % 08/05/22 02:40 Neut # (Auto) 3.97 10^3/uL (1.8-7.7) 08/05/22 02:40 Lymph # (Auto) 1.3 10^3/uL (0.8-4.8) 08/05/22 02:40 [place] # (Auto) 0.6 10^3/uL (0.2-0.9) 08/05/22 02:40 Eos # (Auto) 0.2 10^3/uL (0.0-0.8) 08/05/22 02:40 Baso # (Auto) 0.0 10^3/uL (0.0-0.1) 08/05/22 02:40 Nucleated RBC % (auto) 0 % 08/05/22 02:40 Nucleated RBCs # 0.0 /100WBC 08/05/22 02:40 Sodium 140 mmol/L (136-145) 08/05/22 02:40 Potassium 3.7 mmol/L (3.5-5.1) 08/05/22 02:40 Chloride 107 mmol/L (98-107) 08/05/22 02:40 Carbon Dioxide 24 mmol/L (22-29) 08/05/22 02:40 Anion Gap 12.7 (5-19) 08/05/22 02:40 BUN 10 mg/dL (8-23) 08/05/22 02:40 Creatinine 0.7 mg/dL (0.5-0.9) 08/05/22 02:40 GFR Calculation Not Reportable 08/05/22 02:40 Glucose 105 mg/dL (65-115) 08/05/22 02:40 Calculated Osmolality 289 mOsm/kg (285-295) 08/05/22 02:40 Lactate 1.4 mmol/L (0.5-2.2) 08/03/22 10:00 Calcium 8.0 mg/dL (8.5-10.5) L 08/05/22 02:40 Magnesium 2.0 mg/dL (1.7-2.3) 08/03/22 10:00 Total Bilirubin 0.5 mg/dL (0.15-1.2) 08/05/22 02:40 AST 19 U/L (0-32) 08/05/22 02:40 ALT 20 U/L (0-33) 08/05/22 02:40 Alkaline Phosphatase 73 U/L (35-105) 08/05/22 02:40 Troponin T Baseline 21 ng/L (0-10) H 08/03/22 10:00 Troponin T 120 Minute 28.04 ng/L (0-10) H 08/03/22 11:56 Delta Troponin T 7.04 ABS# (0-10) 08/03/22 11:56 Troponin T Hi Sens 6Hr 27.81 ng/L (0-10) H 08/03/22 16:41 Troponin T Hi Sens 6Hr Delta 6.81 ng/L (0-12) 08/03/22 16:41 NT-Pro-B Natriuret Pep 704 pg/mL (0-450) H 08/03/22 10:00 Total Protein 4.9 g/dL (6.6-8.7) L 08/05/22 02:40 Albumin 3.0 g/dL (3.5-5.2) L 08/05/22 02:40 Globulin 1.9 g/dL (1.3-4.6) 08/05/22 02:40 Lipase 41 U/L (13-60) 08/04/22 04:13 TSH 1.64 uIU/mL (0.27-4.20) 08/03/22 10:00 Urine Color Yellow (Yellow) 08/03/22 02:45 Urine Appearance Clear (CLEAR) 08/03/22 02:45 Urine pH 6.5 (5-7) 08/03/22 02:45 Ur Specific [place] 1.010 (1.005-1.030) 08/03/22 02:45 Urine Protein Neg (Negative) 08/03/22 02:45 Urine Glucose (UA) Norm (Normal) 08/03/22 02:45 Urine Ketones Negative (Negative) 08/03/22 02:45 Urine Blood Trace (Negative) H 08/03/22 02:45 Urine Nitrate Negative (Negative) 08/03/22 02:45 Urine Bilirubin Neg (Negative) 08/03/22 02:45 Urine Urobilinogen Norm mg/dL (Negative) 08/03/22 02:45 Ur Leukocyte Esterase Negative (Negative) 08/03/22 02:45 Urine RBC 0-4 /hpf (0-2) H 08/03/22 02:45 Urine WBC 0-4 /hpf (0-5) H 08/03/22 02:45 Ur Squamous Epith Cells 0-4 /hpf (0-5) H 08/03/22 02:45 Amorphous Sediment 1+ /hpf 08/03/22 02:45 Urine Bacteria None /hpf (NONE) 08/03/22 02:45 Coronavirus 229E (PCR) Not detected (NOT DETECT) 08/03/22 17:15 SARS-CoV-2 (PCR) Not detected (NOT DETECT) 08/03/22 17:15 Vitals Last Vital Signs Temp 98.6 F 08/05/22 10:53 Pulse 68 08/05/22 10:53 Resp 16 08/05/22 10:53 BP 120/75 08/05/22 10:53 Pulse Ox 96 08/05/22 10:53 O2 Del Method 08/05/22 09:00 Discharge Plan Discharge Patient Disposition: Home Condition: Stable Prescriptions: New metoprolol tartrate 50 mg Tablet 50 mg PO BID Qty: 180 0RF Eliquis 5 mg tablet 5 mg PO BID Qty: 180 0RF Continued vitamin E (dl, acetate) 200 unit capsule 200 unit PO DAILY@12 atorvastatin 20 mg tablet 20 mg PO BEDTIME tizanidine 4 mg tablet 2 mg PO QID PRN (Reason: Muscle Spasm) amlodipine 2.5 mg tablet 2.5 mg PO DAILY Rx Instructions: (on hold per family) clopidogrel 75 mg tablet 75 mg PO QAM tramadol 50 mg tablet 50 mg PO QID PRN (Reason: Pain) CoQ-10 100 mg Capsule 100 mg PO BEDTIME losartan 50 mg tablet 50 mg PO BID Rx Instructions: (on hold per family) Changed omeprazole 20 mg tablet,delayed release (DR/EC) 20 mg PO BID Qty: 60 0RF Discontinued methylprednisolone 4 mg tablets,dose pack See Rx Instructions .ROUTE .COMPLEX Rx Instructions: as directed on package metoprolol succinate 25 mg tablet extended release 24 hr 25 mg PO BID Discharge Orders: Discharge Order (Routine); Ordered 08/05/22 Ordered By: Lazaro Blandon Referrals: JOAN CAAL APRN [Referring] - 4-7 days Discharge Diet: Cardiac Patient Instructions: Metoprolol (By mouth), Apixaban (By mouth), A-fib (Atrial Fibrillation) (GEN), Opioid Safety Discharge Attestations Time Spent in Discharge Care*: greater than 30 min Quality Metrics Clinical Quality Measures [ No reported AMI, CVA or VTE this stay] Coding Level of Care Code Acute Chg FW DC note Diagnoses Atrial fibrillation I48.91 Abdominal pain R10.9 Weakness R53.1 Hypertension I10
--- NOTE | 2022-08-05 12:12 | PC.NURSE ---
Patient education given at bedside with sister present. No further questions after discharge education provided. Patient left with family member via wheelchair to personal vehicle. Approximately 1204.
== END 2022-08-05 12:04 | disposition home health service (06) | DRG 309 ==
LOC: ER 10:59 → ER IP 15:52 → ICU 17:58
PROVIDERS: Admitting Provider Internal Medicine; Emergency Provider Family Medicine; Visit Provider Internal Medicine
DX: I48.91 Unspecified atrial fibrillation (principal); I69.351 Hemiplegia and hemiparesis following cerebral infarction affecting right dominant side; E86.0 Dehydration; E87.6 Hypokalemia; R11.2 Nausea with vomiting, unspecified; R19.7 Diarrhea, unspecified; R53.1 Weakness; R10.9 Unspecified abdominal pain; I10 Essential (primary) hypertension; K21.9 Gastro-esophageal reflux disease without esophagitis; E78.5 Hyperlipidemia, unspecified; Z66 Do not resuscitate; Z79.02 Long term (current) use of antithrombotics/antiplatelets
CPT/HCPCS: 36415; 71045; 74018; 80053; 81001; 83605; 83690; 83735; 83880; 84443; 84484; 85025; 87493; 87635; 93005; 93306; 96365; 96366; 96372; 97110; 97161; 99285; C9113; J1650; J2270; J2405; J3490; J7030